=== PATIENT | male | born 1975 | race Caucasian/White ===

== ENCOUNTER 2016-05-03 00:07 | Emergency (ER) | payer OTHER ==
[~2016-05-03] VITALS: Ht 149.9 cm; Wt 75.7 kg
[~2016-05-03 00:07] MED LIST: ACETAMINOPHEN325 M1 PO; AMANTADINE50 MG/5 ML PO; AMLODIPINE BESY10 MG PO; ANTACID EXTRA1 EAC1 PO; ANTACID EXTRA300 MG PO; ARTIFICIAL TEAR15 M1 BOTH EYES; ASPIRIN81 M1; ASPIRIN81 M2 PO; ATENOLOL25 M1 PO; BAYER ASPIRIN325 M1 PO; BENZTROPINE ME0.5 MG PO; BENZTROPINE MESY1 MG PO; CATAPRES0.1 MG PO; CEFTIN500 MG PO; CHILD ASPIRIN81 M1 PO; COGENTIN0.5 MG PO; COGENTIN1 MG PO; COLACE1 EAC1 PO; COLACE100 MG PO; DAILY VALUE1 EACH PO; DELTASONE10 MG PO; DELTASONE20 MG PO; DESMOPRESSIN A0.2 MG PO; EPIPEN ADU0.3 MG/0.3 IM; FLONASE16 G1 BOTH NARES; FLUPHENAZI PO; FLUPHENAZINE H2.5 MG PO; FLUPHENAZINE HCL5 MG PO; GERI-LANTA LIQ355 ML PO; HYDROCHLOROTHIA50 MG PO; HYDRODIURIL,ORE50 MG PO; IMIPRAMINE HCL25 MG PO; KEFLEX500 MG PO; KENALOG,ARISTOC80 GM TP; LEXAPRO10 MG PO; LEXAPRO20 MG PO; LEXAPRO5 MG PO; LIPITOR10 MG PO; MULTI-DAY VITA1 EACH PO; MULTIVITAMIN1 EAC2 PO; Maalox, Mylanta PO; NORVASC10 MG PO; NUVIGIL150 MG; NUVIGIL150 MG PO; NUVIGIL250 MG PO; NUVIGIL50 MG; NUVIGIL50 MG PO; OXCARBAZEPINE300 MG PO; Ocean Nasal 0.65%; PATANOL OP100 DROP/5 BOTH EYES; PRILOSEC20 MG PO; PROAIR HFA8.5 GM IH; PROLIXIN2.5 MG PO; PriLOSEC PO; Proventil,Ventolin H IH; SINGULAIR10 MG PO; Singulair PO; THERAGRAN1 TABLET PO; TOPAMAX100 MG PO; TOPAMAX25 MG PO; TOPAMAX50 MG PO; TRIAMCINOLONE A15 GM TP; TRILEPTAL300 MG PO; TRILEPTAL75 MG PO; TUMS500 MG PO; TYLENOL REGULA325 MG PO; Tums PO; Tylenol Regular Stre PO; VENTOLIN HFA18 GM IH; VICODIN 5-3001 EACH PO; VITAMIN D PO; VITAMIN D400 INTUNI PO; VITAMIN D400 UNI1; VITAMIN D400 UNI1 PO; VITAMIN E400 UNIT PO; Vitamin D PO; [UNRECOGNIZED DRUG - OTHER] BOTH NARES; [UNRECOGNIZED DRUG - OTHER] DT
[2016-05-03 01:29] LABS: ADD MIUA? NO; BILIRUBIN NEGATIVE; BLOOD NEGATIVE; COLOR STRAW ((YELLOW)); GLUCOSE (STRIP) NEGATIVE; KETONES NEGATIVE; LEUKOCYTES NEGATIVE; NITRITE NEGATIVE; PROTEIN (STRIP) NEGATIVE; UCUL ADDED? NO; UROBILINOGEN 0.2 MG/DL (0.2-1.0)
[2016-05-03 01:51] LABS: HEMATOCRIT 41.5 % (38.0-50.0); MCH 29.7 PG (29.0-34.0); MCHC 32.8 G/DL (30.0-36.0); MCV 90.6 FL (86-99); PLATELET COUNT 40 K/uL (156-360); RBC DIS.WIDTH-SD 45.4 % (39-53); RED BLOOD COUNT 4.58 M/uL (4.00-5.50); WHITE BLOOD COUNT 3.8 K/uL (4.1-10.2)
[2016-05-03 03:05] LABS: CHLORIDE 111 mEq/L (99-109); SODIUM 141 mEq/L (136-147)
[2016-05-03 03:07] LABS: GLUCOSE 90 mg/dL (70-99)
[2016-05-03 03:08] LABS: ANION GAP 5 MEQ/L (2-14)
[2016-05-03 03:11] LABS: GFR ESTIMATE (CALCULATED) > 59 mL/min/; UREA NITROGEN (BUN) 21 mg/dL (9-23)
[2016-05-03 03:38] LABS: INFLUENZA A VIRAL ANTIGEN NEGATIVE; INFLUENZA B VIRAL ANTIGEN NEGATIVE
[2016-05-03 03:52] VITALS: BP 141/95
[2016-05-03 09:59] LABS: TREPONEMA ANTIBODY NEGATIVE (NEGATIVE)
[2016-05-03 10:59] LABS: HBSG INDEX 0.18; HPCA INDEX 0.16
[2016-05-03 11:00] LABS: ANTI-HEPATITIS A VIRUS (IGM) Nonreactive; HAV INDEX 0.14
[2016-05-03 11:01] LABS: ANTI-HEPATITIS B CORE (IGM) Nonreactive; HBC IgM INDEX 0.06; HIV INDEX 0.15; HIV-1/2 AB/AG COMBO Nonreactive
[2016-05-03 12:03] LABS: CHLAMYDIA TRACHOMATIS NEGATIVE; NEISSERIA GONORRHOEAE NEGATIVE
[2016-05-04 14:28] LABS: HSV-1 IgG Antibody 0.2 (<0.90); HSV-2 IgG Antibody 0.17 (<0.90)
== END 2016-05-03 03:52 ==
LOC: EME 00:07
PROVIDERS: Emergency Medicine
DX: T76.21XA Adult sexual abuse, suspected, initial encounter (principal); D69.6 Thrombocytopenia, unspecified; D72.819 Decreased white blood cell count, unspecified; F79 Unspecified intellectual disabilities; Y92.198 Other place in other specified residential institution as the place of occurrence of the external cause; J45.909 Unspecified asthma, uncomplicated; I10 Essential (primary) hypertension; G47.30 Sleep apnea, unspecified; Z87.891 Personal history of nicotine dependence
CPT/HCPCS: 80048; 80074; 81003; 85027; 86695 90; 86696 90; 86703; 86705; 86780; 86803; 87254; 87340; 87491; 87502; 87591; 99281; 99285

== ENCOUNTER 2016-08-18 18:37 | Inpatient (IN) | payer OTHER ==
[~2016-08-18] VITALS: Ht 152.4 cm; Wt 83.6 kg
[2016-08-18 19:19] LABS: HEMATOCRIT 45.4 % (38.0-50.0); MCH 29.7 PG (29.0-34.0); MCHC 30.8 G/DL (30.0-36.0); MCV 96.2 FL (86-99); MEAN PLAT.VOLUME 10.6 uM^3 (9.0-12.4); PLATELET COUNT 215 K/uL (156-360); RBC DIS.WIDTH-CV 14.6 % (11.8-14.6); RBC DIS.WIDTH-SD 52.4 % (39-53); RED BLOOD COUNT 4.72 M/uL (4.00-5.50); WHITE BLOOD COUNT 18.3 K/uL (4.1-10.2)
[2016-08-18 19:28] LABS: CHLORIDE 111 mEq/L (99-109); POTASSIUM 4.4 mEq/L (3.7-5.4); SODIUM 140 mEq/L (136-147)
[2016-08-18 19:30] LABS: GLUCOSE 110 mg/dL (70-99)
[2016-08-18 19:31] LABS: ANION GAP 9 MEQ/L (2-14)
[2016-08-18 19:32] LABS: TOTAL BILIRUBIN 0.2 mg/dL (0.0-1.0)
[2016-08-18 19:33] LABS: ALKALINE PHOSPHATASE 68 IU/L (3-129)
[2016-08-18 19:34] LABS: GFR ESTIMATE (CALCULATED) > 59 mL/min/
[2016-08-18 19:35] LABS: UREA NITROGEN (BUN) 17 mg/dL (9-23)
[2016-08-18 19:42] LABS: LIPASE 20 U/L (1.0-51.0)
[2016-08-18 19:56] LABS: TROP-I INTERPRETATION NEGATIVE; TROPONIN-I < 0.01 ng/mL (0.0-0.30)
[2016-08-18 22:14] LABS: TROP-I INTERPRETATION NEGATIVE; TROPONIN-I < 0.01 ng/mL (0.0-0.30)
[2016-08-18 22:36] LABS: ADD MIUA? NO; BILIRUBIN NEGATIVE; BLOOD NEGATIVE; COLOR YELLOW ((YELLOW)); GLUCOSE (STRIP) NEGATIVE; KETONES NEGATIVE; LEUKOCYTES NEGATIVE; NITRITE NEGATIVE; PROTEIN (STRIP) NEGATIVE; SPECIFIC GRAVITY 1.019 (1.000-1.030); UCUL ADDED? NO; UROBILINOGEN 0.2 MG/DL (0.2-1.0)
[2016-08-19] MEDS ORDERED: ALENDRONATE SOD70 MG PO (00:43)
[2016-08-19] MEDS ORDERED: CLONAZEPAM0.5 MG PO (00:45)
[2016-08-19] MEDS ORDERED: ELFOLATE15 MG PO (00:46)
[2016-08-19] MEDS ORDERED: ARIPIPRAZOLE5 MG PO (00:49)
[2016-08-19] MEDS ORDERED: AMBIEN5 MG PO (00:49)
[2016-08-19] MEDS ORDERED: LITHIUM CARBON600 MG PO (00:50)
[2016-08-19] MEDS ORDERED: SEROQUEL200 MG PO (00:52)
[2016-08-19] MEDS ORDERED: KETOTIFEN FUMARA5 M1 BOTH EYES (00:52)
[2016-08-19] MEDS ORDERED: ARTIFICIAL TEAR15 M1 BOTH EYES (00:54)
[2016-08-19] MEDS ORDERED: EPIPEN ADU0.3 MG/0.3 IM (00:54)
[2016-08-19] MEDS ORDERED: IBUPROFEN800 MG PO (00:55)
[2016-08-19] MEDS ORDERED: PROAIR HFA8.5 GM IH (00:55)
[2016-08-19] MEDS ORDERED: GERI-LANTA LIQ355 ML PO (00:55)
[2016-08-19] MEDS ORDERED: A AND D OINTM42.5 GM TP (00:57)
[2016-08-19 03:14] VITALS: BP 154/86
[2016-08-19 06:17] LABS: EOSINOPHIL (%) 1.5 % (0-5); EOSINOPHIL COUNT 0.3 K/uL (0-0.3); HEMATOCRIT 41.6 % (38.0-50.0); IMMATURE GRANULOCYTE (%) 0.4 % (0.0-0.7); IMMATURE GRANULOCYTE COUNT 0.1 K/uL; INSTRUMENT ABS NEUTROPHIL CT 14.4 K/uL; LYMPHOCYTE COUNT 1.1 K/uL (1.0-2.8); MCH 30.3 PG (29.0-34.0); MCHC 31.3 G/DL (30.0-36.0); MEAN PLAT.VOLUME 10.5 uM^3 (9.0-12.4); MONOCYTE (%) 7.3 % (3-12); MONOCYTE COUNT 1.3 K/uL (0-0.8); NEUTROPHIL (%) 84.2 % (45-76); NEUTROPHIL COUNT 14.4 K/uL (1.8-6.4); PLATELET COUNT 212 K/uL (156-360); RED BLOOD COUNT 4.29 M/uL (4.00-5.50); WHITE BLOOD COUNT 17.1 K/uL (4.1-10.2)
[2016-08-19 06:41] LABS: ALKALINE PHOSPHATASE 63 IU/L (3-129); ANION GAP 7 MEQ/L (2-14); CHLORIDE 112 MEQ/L (99-109); GFR ESTIMATE (CALCULATED) > 59 mL/min/; GLUCOSE 99 mg/dL (70-99); POTASSIUM 4.1 MEQ/L (3.7-5.4); SAMPLE HEMOLYSIS CHECK 0; SAMPLE ICTERIC CHECK 0; SAMPLE LIPEMIA CHECK 0; SODIUM 144 MEQ/L (136-147); TOTAL BILIRUBIN 0.3 MG/DL (0.0-1.0); UREA NITROGEN (BUN) 19 mg/dL (9-23)
[2016-08-19 06:50] VITALS: BP 144/77
[2016-08-19 11:05] VITALS: BP 138/79
[2016-08-19 15:07] VITALS: BP 140/70
[2016-08-19 19:20] VITALS: BP 139/83
[2016-08-19 22:50] VITALS: BP 141/86
[2016-08-20 02:34] VITALS: BP 138/83
[2016-08-20 07:35] LABS: ANION GAP 12 MEQ/L (2-14); CHLORIDE 112 MEQ/L (99-109); GFR ESTIMATE (CALCULATED) > 59 mL/min/; GLUCOSE 83 mg/dL (70-99); POTASSIUM 3.8 MEQ/L (3.7-5.4); SAMPLE HEMOLYSIS CHECK 0; SAMPLE ICTERIC CHECK 0; SAMPLE LIPEMIA CHECK 0; SODIUM 147 MEQ/L (136-147); UREA NITROGEN (BUN) 13 mg/dL (9-23)
[2016-08-20 08:04] VITALS: BP 147/79
[2016-08-20 11:50] VITALS: BP 139/66
[2016-08-20 15:32] VITALS: BP 141/77
[2016-08-20 19:43] VITALS: BP 139/74
[2016-08-21 06:35] LABS: EOSINOPHIL (%) 0.6 % (0-5); EOSINOPHIL COUNT 0.1 K/uL (0-0.3); HEMATOCRIT 41.1 % (38.0-50.0); IMMATURE GRANULOCYTE (%) 0.4 % (0.0-0.7); IMMATURE GRANULOCYTE COUNT 0.1 K/uL; INSTRUMENT ABS NEUTROPHIL CT 13.1 K/uL; LYMPHOCYTE COUNT 1.2 K/uL (1.0-2.8); MCH 29.9 PG (29.0-34.0); MCHC 31.4 G/DL (30.0-36.0); MCV 95.1 FL (86-99); MEAN PLAT.VOLUME 10.4 uM^3 (9.0-12.4); MONOCYTE (%) 8.9 % (3-12); MONOCYTE COUNT 1.4 K/uL (0-0.8); NEUTROPHIL (%) 82.5 % (45-76); NEUTROPHIL COUNT 13.1 K/uL (1.8-6.4); PLATELET COUNT 231 K/uL (156-360); RBC DIS.WIDTH-CV 14.3 % (11.8-14.6); RBC DIS.WIDTH-SD 50.3 % (39-53); RED BLOOD COUNT 4.32 M/uL (4.00-5.50); WHITE BLOOD COUNT 15.9 K/uL (4.1-10.2)
[2016-08-21 07:04] LABS: ANION GAP 9 MEQ/L (2-14); CHLORIDE 112 MEQ/L (99-109); GFR ESTIMATE (CALCULATED) > 59 mL/min/; POTASSIUM 3.5 MEQ/L (3.7-5.4); SAMPLE HEMOLYSIS CHECK 0; SAMPLE ICTERIC CHECK 0; SAMPLE LIPEMIA CHECK 0; SODIUM 146 MEQ/L (136-147); UREA NITROGEN (BUN) 9 mg/dL (9-23)
[2016-08-21 07:05] LABS: GLUCOSE 138 mg/dL (70-99)
[2016-08-21 08:17] VITALS: BP 153/82
[2016-08-21 17:50] VITALS: BP 152/82
[2016-08-22 00:15] VITALS: BP 125/68
[2016-08-22 07:48] VITALS: BP 138/77
[2016-08-22 08:46] LABS: EOSINOPHIL (%) 1.2 % (0-5); EOSINOPHIL COUNT 0.2 K/uL (0-0.3); HEMATOCRIT 41.1 % (38.0-50.0); IMMATURE GRANULOCYTE (%) 0.7 % (0.0-0.7); IMMATURE GRANULOCYTE COUNT 0.1 K/uL; INSTRUMENT ABS NEUTROPHIL CT 11.9 K/uL; LYMPHOCYTE COUNT 1.8 K/uL (1.0-2.8); MCH 29.9 PG (29.0-34.0); MCHC 30.9 G/DL (30.0-36.0); MCV 96.7 FL (86-99); MEAN PLAT.VOLUME 10.2 uM^3 (9.0-12.4); MONOCYTE (%) 6.8 % (3-12); NEUTROPHIL (%) 79.4 % (45-76); NEUTROPHIL COUNT 11.9 K/uL (1.8-6.4); PLATELET COUNT 230 K/uL (156-360); RBC DIS.WIDTH-CV 14.4 % (11.8-14.6); RBC DIS.WIDTH-SD 50.6 % (39-53); RED BLOOD COUNT 4.25 M/uL (4.00-5.50)
[2016-08-22 09:14] LABS: ANION GAP 8 MEQ/L (2-14); CHLORIDE 108 MEQ/L (99-109); GFR ESTIMATE (CALCULATED) > 59 mL/min/; GLUCOSE 137 mg/dL (70-99); POTASSIUM 3.8 MEQ/L (3.7-5.4); SAMPLE HEMOLYSIS CHECK 0; SAMPLE ICTERIC CHECK 0; SAMPLE LIPEMIA CHECK 0; SODIUM 141 MEQ/L (136-147); UREA NITROGEN (BUN) 9 mg/dL (9-23)
[2016-08-22 16:09] VITALS: BP 150/84
[2016-08-23 00:51] VITALS: BP 166/96
[2016-08-23 08:15] VITALS: BP 141/84
[2016-08-23 17:18] VITALS: BP 144/92
== END 2016-08-23 17:46 | DRG 389 ==
LOC: EME 18:37 → 5EAST 22:41 → EDOF 22:41 → 5EAST 08-19 02:04
PROVIDERS: Internal Medicine; Physician Assistant Medical; Surgery
DX: K56.60 Unspecified intestinal obstruction (principal); F72 Severe intellectual disabilities; Q87.1 Congenital malformation syndromes predominantly associated with short stature; F29 Unspecified psychosis not due to a substance or known physiological condition; E66.9 Obesity, unspecified; F31.9 Bipolar disorder, unspecified; F63.81 Intermittent explosive disorder; G47.33 Obstructive sleep apnea (adult) (pediatric); J45.909 Unspecified asthma, uncomplicated; F98.8 Other specified behavioral and emotional disorders with onset usually occurring in childhood and adolescence
CPT/HCPCS: 71010; 71020; 74000; 74020; 74177; 80048; 80053; 81003; 83690; 84484; 85025; 85027; 93005; 94799; 99202; 99281; 99285; C9113; J1885; J2060; J2405; J3480; J3486; J7030

== ENCOUNTER 2016-09-28 13:27 | Emergency (ER) | payer OTHER ==
[~2016-09-28] VITALS: Ht 152.4 cm; Wt 82.7 kg
[~2016-09-28 13:27] MED LIST changes: +A AND D OINTM42.5 GM TP; +ALENDRONATE SOD70 MG PO; +AMBIEN5 MG PO; +ARIPIPRAZOLE5 MG PO; +CLONAZEPAM0.5 MG PO; +ELFOLATE15 MG PO; +IBUPROFEN800 MG PO; +KETOTIFEN FUMARA5 M1 BOTH EYES; +LITHIUM CARBON600 MG PO; +SEROQUEL200 MG PO
[2016-09-28 18:00] VITALS: BP 127/93
== END 2016-09-28 18:00 | disposition home or self-care (01) ==
LOC: EME 13:27
DX: S00.83XA Contusion of other part of head, initial encounter (principal); F63.81 Intermittent explosive disorder; Y04.0XXA Assault by unarmed brawl or fight, initial encounter; F41.9 Anxiety disorder, unspecified; I10 Essential (primary) hypertension; E78.5 Hyperlipidemia, unspecified; Z88.8 Allergy status to other drugs, medicaments and biological substances
CPT/HCPCS: 70450; 70486; 99281; 99284

== ENCOUNTER 2016-10-05 17:48 | Inpatient (IN) | payer OTHER ==
[~2016-10-05] VITALS: Ht 152.4 cm; Wt 79.4 kg
[2016-10-05 19:46] LABS: ADD MIUA? NO; BILIRUBIN NEGATIVE; BLOOD NEGATIVE; COLOR YELLOW ((YELLOW)); GLUCOSE (STRIP) NEGATIVE; KETONES NEGATIVE; LEUKOCYTES NEGATIVE; NITRITE NEGATIVE; PROTEIN (STRIP) 30; SPECIFIC GRAVITY 1.014 (1.000-1.030); UROBILINOGEN 0.2 MG/DL (0.2-1.0)
[2016-10-05 20:14] LABS: BASOPHIL COUNT 0.1 K/uL (0-0.1); EOSINOPHIL (%) 0.2 % (0-5); HEMATOCRIT 43.7 % (38.0-50.0); IMMATURE GRANULOCYTE (%) 0.7 % (0.0-0.7); IMMATURE GRANULOCYTE COUNT 0.1 K/uL; INSTRUMENT ABS NEUTROPHIL CT 15.6 K/uL; LYMPHOCYTE COUNT 1.7 K/uL (1.0-2.8); MCH 29.4 PG (29.0-34.0); MCHC 31.6 G/DL (30.0-36.0); MEAN PLAT.VOLUME 10.9 uM^3 (9.0-12.4); MONOCYTE (%) 8.5 % (3-12); MONOCYTE COUNT 1.6 K/uL (0-0.8); NEUTROPHIL (%) 81.4 % (45-76); NEUTROPHIL COUNT 15.6 K/uL (1.8-6.4); PLATELET COUNT 210 K/uL (156-360); RBC DIS.WIDTH-CV 13.7 % (11.8-14.6); RBC DIS.WIDTH-SD 46.9 % (39-53); WHITE BLOOD COUNT 19.2 K/uL (4.1-10.2)
[2016-10-05 20:20] LABS: CHLORIDE 107 mEq/L (99-109); POTASSIUM 4.1 mEq/L (3.7-5.4); SODIUM 140 mEq/L (136-147)
[2016-10-05 20:22] LABS: GLUCOSE 105 mg/dL (70-99)
[2016-10-05 20:23] LABS: ANION GAP 9 MEQ/L (2-14)
[2016-10-05 20:24] LABS: TOTAL BILIRUBIN 0.2 mg/dL (0.0-1.0)
[2016-10-05 20:26] LABS: ALKALINE PHOSPHATASE 84 IU/L (3-129); GFR ESTIMATE (CALCULATED) > 59 mL/min/
[2016-10-05 20:27] LABS: UREA NITROGEN (BUN) 21 mg/dL (9-23)
[2016-10-05] MEDS ORDERED: ASPIRIN81 M2 PO (21:59)
[2016-10-05] MEDS ORDERED: VITAMIN D31000 UNIT PO (22:01)
[2016-10-05 23:44] VITALS: BP 122/76
[2016-10-06 03:24] VITALS: BP 118/59
[2016-10-06 08:01] LABS: HEMATOCRIT 44.3 % (38.0-50.0); MCHC 31.6 G/DL (30.0-36.0); MCV 95.1 FL (86-99); MEAN PLAT.VOLUME 11.5 uM^3 (9.0-12.4); PLATELET COUNT 193 K/uL (156-360); RBC DIS.WIDTH-SD 48.9 % (39-53); RED BLOOD COUNT 4.66 M/uL (4.00-5.50); WHITE BLOOD COUNT 19.7 K/uL (4.1-10.2)
[2016-10-06 08:15] VITALS: BP 138/75
[2016-10-06 11:31] VITALS: BP 132/76
[2016-10-06 16:31] VITALS: BP 129/69
[2016-10-07 00:08] VITALS: BP 109/63
[2016-10-07 05:46] VITALS: BP 120/59
[2016-10-07 06:10] LABS: HEMATOCRIT 36.9 % (38.0-50.0); MCH 29.7 PG (29.0-34.0); MCHC 31.4 G/DL (30.0-36.0); MCV 94.4 FL (86-99); MEAN PLAT.VOLUME 10.7 uM^3 (9.0-12.4); PLATELET COUNT 177 K/uL (156-360); RBC DIS.WIDTH-CV 14.4 % (11.8-14.6); RBC DIS.WIDTH-SD 50.2 % (39-53); RED BLOOD COUNT 3.91 M/uL (4.00-5.50); WHITE BLOOD COUNT 15.8 K/uL (4.1-10.2)
[2016-10-07 06:28] LABS: GFR ESTIMATE (CALCULATED) > 59 mL/min/; UREA NITROGEN (BUN) 12 mg/dL (9-23)
[2016-10-07 08:12] VITALS: BP 125/68
[2016-10-07 16:22] VITALS: BP 140/64
[2016-10-07 19:27] VITALS: BP 146/67
[2016-10-08 00:06] VITALS: BP 108/60
[2016-10-08 08:16] VITALS: BP 132/75
[2016-10-08 09:55] LABS: EOSINOPHIL (%) 1.8 % (0-5); EOSINOPHIL COUNT 0.2 K/uL (0-0.3); HEMATOCRIT 36.1 % (38.0-50.0); IMMATURE GRANULOCYTE (%) 0.6 % (0.0-0.7); IMMATURE GRANULOCYTE COUNT 0.1 K/uL; INSTRUMENT ABS NEUTROPHIL CT 9.3 K/uL; LYMPHOCYTE COUNT 0.8 K/uL (1.0-2.8); MCH 28.9 PG (29.0-34.0); MCHC 30.2 G/DL (30.0-36.0); MCV 95.8 FL (86-99); MEAN PLAT.VOLUME 10.6 uM^3 (9.0-12.4); MONOCYTE (%) 8.8 % (3-12); NEUTROPHIL (%) 81.4 % (45-76); NEUTROPHIL COUNT 9.3 K/uL (1.8-6.4); PLATELET COUNT 191 K/uL (156-360); RBC DIS.WIDTH-CV 14.6 % (11.8-14.6); RBC DIS.WIDTH-SD 51.2 % (39-53); RED BLOOD COUNT 3.77 M/uL (4.00-5.50); WHITE BLOOD COUNT 11.4 K/uL (4.1-10.2)
[2016-10-08 10:15] LABS: ANION GAP 5 MEQ/L (2-14); CHLORIDE 111 MEQ/L (99-109); GFR ESTIMATE (CALCULATED) > 59 mL/min/; POTASSIUM 4.1 MEQ/L (3.7-5.4); SAMPLE HEMOLYSIS CHECK 0; SAMPLE ICTERIC CHECK 0; SAMPLE LIPEMIA CHECK 0; SODIUM 143 MEQ/L (136-147); UREA NITROGEN (BUN) 10 mg/dL (9-23)
[2016-10-08 10:17] LABS: GLUCOSE 171 mg/dL (70-99)
[2016-10-08 15:58] VITALS: BP 117/76
[2016-10-08 23:45] VITALS: BP 105/69
[2016-10-09 07:32] LABS: INTERNAL CONTROL VALID? YES
[2016-10-09 07:47] VITALS: BP 123/83
[2016-10-09 15:24] VITALS: BP 130/74
[2016-10-09 23:43] VITALS: BP 128/72
[2016-10-10 08:05] VITALS: BP 138/78
[2016-10-10 17:05] VITALS: BP 155/74
[2016-10-10] MEDS ORDERED: AMOX TR-K CLV1 EAC3 PO (17:28)
== END 2016-10-10 19:40 | DRG 194 ==
LOC: EME 17:48 → 3EAST 21:30 → EDOF 21:30 → ENRESERV 21:42 → 3EAST 23:22
PROVIDERS: Internal Medicine; Physician Assistant
DX: J15.9 Unspecified bacterial pneumonia (principal); T80.1XXA Vascular complications following infusion, transfusion and therapeutic injection, initial encounter; I80.8 Phlebitis and thrombophlebitis of other sites; T80.89XA Other complications following infusion, transfusion and therapeutic injection, initial encounter; T22.031A Burn of unspecified degree of right upper arm, initial encounter; G47.33 Obstructive sleep apnea (adult) (pediatric); G47.10 Hypersomnia, unspecified; J45.909 Unspecified asthma, uncomplicated; I10 Essential (primary) hypertension; T36.0X5A Adverse effect of penicillins, initial encounter; R41.82 Altered mental status, unspecified; R63.2 Polyphagia; F71 Moderate intellectual disabilities; E78.5 Hyperlipidemia, unspecified; F29 Unspecified psychosis not due to a substance or known physiological condition; F31.9 Bipolar disorder, unspecified; F63.81 Intermittent explosive disorder; F41.9 Anxiety disorder, unspecified; Q87.1 Congenital malformation syndromes predominantly associated with short stature; R09.02 Hypoxemia; Z68.34 Body mass index [BMI] 34.0-34.9, adult; Z87.891 Personal history of nicotine dependence
CPT/HCPCS: 71020; 80048; 80053; 80202; 81003; 82565; 83605; 84520; 85025; 85027; 87040; 87070; 87205; 87449; 93971; 94640; 94640 76; 94760; 94799; 99202; 99281; 99285; A6212; J0456; J1650; J2543; J3370; J7030; J7050